=== PATIENT | male | born 1975 | race Caucasian/White ===

== ENCOUNTER → 2020-08-10 | Outpatient (CLI) | payer BC ==
--- NOTE | 2020-08-10 11:41 | REP ---
INDICATION: UNSPECIFIED INTERNAL DERANGEMENT OF RIGHT KNEE. COMPARISON: None. TECHNIQUE: Five views of the right knee are provided. FINDINGS: Five views of the right knee demonstrate mild prepatellar soft tissue swelling. There are multiple dystrophic soft tissue calcifications in the prepatellar soft tissues best seen on lateral and sunrise views. There is also mild superior pole patellar spurring at the quadriceps tendon insertion. There is early lateral compartment and medial compartment osteoarthritic spurring. No erosive changes seen. No fracture is noted.. . . IMPRESSION: Mild osteoarthritic spurring. Non articular spurring at the superior pole of patella is also noted. There are dystrophic soft tissue calcifications in the prepatellar soft tissues.. <Electronically signed by Clyde Jarquin > 08/10/20 [id number]
== END ==
LOC: M WUC 11:11
PROVIDERS: ATTEND Physician Assistant
DX: M23.91 Unspecified internal derangement of right knee (principal)

== ENCOUNTER → 2022-06-26 | Outpatient (CLI) | payer BC ==
[2022-06-26 16:50] LABS: PLATELET COUNT, AUTOMATED 223 10^3/uL (150-450)
[2022-06-26 17:17] LABS: INR 0.89; PROTHROMBIN TIME 12.2 SECONDS (12.5-14.5)
[2022-06-26 19:04] LABS: COLLAGEN EPINEPHRINE 105 SECONDS (74-162)
== END ==
LOC: M LAB 15:30
PROVIDERS: ATTEND Physician Assistant
DX: M51.16 Intervertebral disc disorders with radiculopathy, lumbar region (principal)